=== PATIENT | male | born 1970 | race Caucasian/White ===

== ENCOUNTER → 2019-11-26 | Outpatient (CLI) | payer OTHER ==
[~2019-11-26] MED LIST: GABA-843 PO; LISI10TA4 PO; PIRO20CA2 PO; SERT-138 PO; TERB250T12 PO; VIAG100T PO
== END ==
LOC: M RADPRO 14:10
PROVIDERS: ATTEND Internal Medicine
DX: M25.50 Pain in unspecified joint (principal); Z53.8 Procedure and treatment not carried out for other reasons

== ENCOUNTER → 2023-07-10 | Outpatient (REF) | payer OTHER ==
[~2023-07-10] MED LIST changes: +GABA-282 PO; -GABA-843 PO; +LISI10TA22 PO; -LISI10TA4 PO; -TERB250T12 PO; +TERB250T91 PO
== END ==
LOC: M LAB REF 17:19
PROVIDERS: ATTEND Physician Assistant Medical
DX: J32.9 Chronic sinusitis, unspecified (principal)

== ENCOUNTER → 2023-07-19 | Outpatient (CLI) | payer OTHER | LOC: M PLAIMG 11:13 | PROVIDERS: ATTEND Physician Assistant Medical | DX: J32.8 Other chronic sinusitis (principal) ==

== ENCOUNTER 2023-12-12 11:29 | Day surgery (SDC) | payer OTHER ==
[~2023-12-12] VITALS: Ht 175.3 cm; Wt 118.0 kg
[~2023-12-12 11:29] MED LIST changes: +ALTA1CAP3 PO; +CARB10TA6 PO; +CARB25TA18 PO; +CYCL10TA20 PO; +MELO15TA28 PO; +METO200T28 PO; +PANT40TA29 PO; +TOPI-21 PO
[2023-12-12] MEDS: LR 1,000 ML IV SCH (12:34)
[2023-12-12] MEDS ORDERED: fentaNYL 100 MCG/2 ML INJECTION As Ordered ONE (13:53)
[2023-12-12] MEDS ORDERED: LIDOCAINE 2% 100MG/5ML SDV (FOR ANES.) As Ordered ONE (13:54)
[2023-12-12] MEDS ORDERED: SUGAMMADEX SODIUM 500 MG/5 ML VIAL (BRIDION) As Ordered ONE (13:54)
[2023-12-12] MEDS ORDERED: MIDAZOLAM INJ 2MG/2ML VIAL As Ordered ONE (13:54)
[2023-12-12] MEDS ORDERED: propofoL 200 MG/20 ML VIAL As Ordered ONE (13:54)
[2023-12-12] MEDS ORDERED: ROCURONIUM BROMIDE 50MG/5ML VIAL As Ordered ONE (13:54)
[2023-12-12] MEDS ORDERED: ACETAMINOPHEN 1000MG 100ML IV BAG As Ordered ONE (13:56)
[2023-12-12] MEDS ORDERED: ONDANSETRON 4MG 2ML VIAL As Ordered ONE (14:24)
[2023-12-12] MEDS: METHYLENE BLUE 0.5% (5MG/ML) 10 ML AMP (PROVAYBLUE) As Ordered ONE (15:10)
[2023-12-12] MEDS: EPINEPHrine 1MG/ML INJ 30ML MD-VIAL As Ordered ONE (15:10)
[2023-12-12] MEDS ORDERED: LACRILUBE (AKWA TEARS) OPHTH OINT 3.5GM As Ordered ONE (15:16)
[2023-12-12] MEDS ORDERED: LABETALOL 100MG/20ML VIAL As Ordered ONE (15:50)
[2023-12-12] MEDS: ceFAZolin 2 GM/D5W 50 ML IV BAG As Ordered ONE (15:53)
[2023-12-12] MEDS: metroNIDAZOLE/NACL 500MG(5MG/ML) 100ML BAG As Ordered ONE (15:58)
[2023-12-12] MEDS: LIDOCAINE W/EPINEPHRINE 1% 20ML VIAL As Ordered ONE (17:00)
[2023-12-12] MEDS ORDERED: fentaNYL 100 MCG/2 ML INJECTION IV PRN (17:25)
[2023-12-12] MEDS ORDERED: ONDANSETRON 4MG 2ML VIAL IV PRN (17:25)
[2023-12-12] MEDS ORDERED: LR 1,000 ML IV SCH (17:25)
[2023-12-12] MEDS: ALBUTEROL SULFATE 2.5MG/0.5ML INH NEB SOLN INH ONE (17:35)
[2023-12-12] MEDS: MORPHINE 2 MG/ML 1ML VIAL IV PRN (17:46)
[2023-12-12] MEDS ORDERED: MORPHINE 2 MG/ML 1ML VIAL As Ordered ONE (17:46)
[2023-12-12] MEDS: SINEMET 25-100 MG TAB PO STA (18:09)
[2023-12-12 18:48] LABS: CK-MB VALUE MASS 2.4 NG/ML (<3.6)
[2023-12-12] MEDS: PERCOCET 5MG/325MG TAB PO PRN (18:55)
[2023-12-12 18:58] LABS: MB/CK RELATIVE INDEX 1.76 (< OR =4)
[2023-12-12 19:45] VITALS: BP 168/79; TEMP 97.6; O2SAT 95
== END 2023-12-12 19:57 | disposition home or self-care (01) ==
LOC: M SDC 11:29
PROVIDERS: ATTEND Otolaryngology
DX: J32.8 Other chronic sinusitis (principal); J33.8 Other polyp of sinus; J31.0 Chronic rhinitis; J33.0 Polyp of nasal cavity; I10 Essential (primary) hypertension; G62.9 Polyneuropathy, unspecified; F17.210 Nicotine dependence, cigarettes, uncomplicated; K21.9 Gastro-esophageal reflux disease without esophagitis; Z79.899 Other long term (current) drug therapy; Z79.1 Long term (current) use of non-steroidal anti-inflammatories (NSAID); Z87.820 Personal history of traumatic brain injury
CPT/HCPCS: 31255; 31267; 36415; 61782; 71045; 82550; 82553; 84484; 87070; 87075; 87077; 87186; 87205; 88305; 93005; C2625; J0131; J0171; J0690; J1100; J1836; J1920; J2250; J2405; J3010; Q9968

== ENCOUNTER → 2024-10-15 | Outpatient (CLI) | payer OTHER ==
[~2024-10-15] MED LIST changes: +GABA-1172 PO; -GABA-282 PO; +ISOVUE-M 300 61% 15ML VIAL As Ordered ONE; +LIDOCAINE 1% MDV 20ML VIAL As Ordered ONE; +METO200T15 PO; -METO200T28 PO
[2024-10-15 08:30] VITALS: TEMP 98.3
[2024-10-15 08:56] LABS: HEMATOCRIT 43.7 % (42.0-52.0); HEMOGLOBIN 15.3 g/dl (13.5-17.5); MEAN CORPUSCULAR HEMOGLOBIN 32.8 pg (27.0-33.0); MEAN CORPUSCULAR VOLUME 93.6 fl (80.0-96.0); PLATELET COUNT, AUTOMATED 241 10^3/uL (150-450); RED BLOOD COUNT 4.67 10^6/uL (4.30-6.10)
[2024-10-15 10:45] VITALS: BP 180/104; O2SAT 96
== END ==
LOC: M IRPRO 08:24
PROVIDERS: ATTEND Physician Assistant
DX: M47.22 Other spondylosis with radiculopathy, cervical region (principal)
CPT/HCPCS: 36415; 62284; 85027; Q9967